=== PATIENT | male | born 1960 | race African-American/Black ===

== ENCOUNTER 2020-06-25 05:25 | Inpatient (IN) | payer MEDICARE, OTHER ==
[2020-06-25] VITALS (41 sets, daily range): BP systolic 83–183; BP diastolic 37–137
[~2020-06-25] VITALS: Ht 180.3 cm; Wt 179.3 kg
[2020-06-25] MEDS ORDERED: ONDANSETRON HCL 4MG/2ML INJ IV PRN (07:30)
[2020-06-25] MEDS ORDERED: HEPARIN 5000 UNITS/ML VIAL IV PRN (07:30)
[2020-06-25] MEDS: HEPARIN 25,000 UNITS PREMIX 250 ML IV PRN (08:36)
[2020-06-25] MEDS: NITROGLYCERIN 50MG PREMIX 250 ML IV PRN ×5 (08:42→23:09)
[2020-06-25] MEDS: HYDROMORPHONE HCL/PF 2MG/ML CPJ IV PRN ×5 (09:30→21:07)
[2020-06-25 09:38] LABS: BASOPHILS % 0.6 % (0.0-2.0); EOSINOPHILS % 0.5 % (0.0-5.0); HEMATOCRIT. 38.7 % (42.0-52.0); HEMOGLOBIN. 12.7 g/dL (14.0-18.0); LYMPHOCYTES % 15.1 % (20.0-50.0); MEAN CORPUSCULAR HEMOGLOBIN 28.8 pg (28.0-32.0); MEAN CORPUSCULAR VOLUME 87.4 fL (80.0-94.0); MONOCYTES % 12.5 % (2.0-8.0); NEUTROPHILS % 71.3 % (40.0-76.0); RED BLOOD CELL COUNT 4.43 mill/uL (4.7-6.1)
[2020-06-25 09:51] LABS: INR 1.1; PARTIAL THROMBOPLASTIN TIME 29.7 sec (23.4-31.0); PROTHROMBIN TIME 11.8 sec (9.6-11.0)
[2020-06-25 10:03] LABS: CHLORIDE 104 mEq/L (98-107)
[2020-06-25 11:03] LABS: PLATELET 201 x1000/uL (130-400)
[2020-06-25] MEDS ORDERED: AMIODARONE HCL 900 MG in DEXT 5% WATER 482 ML IV SCH (12:00)
[2020-06-25 13:05] LABS: CHLORIDE 103 mEq/L (98-107)
[2020-06-25] MEDS ORDERED: LIDOCAINE HCL 1% 20ML VIAL (Pyxis) INJ ONE ×2 (13:38→14:40)
[2020-06-25] MEDS ORDERED: HEPARIN 1,000 UNITS PREMIX 0 ML IV ONE (13:38)
[2020-06-25] MEDS ORDERED: IODIXANOL 320MG/ML 200ML BOTTLE ONE (13:39)
[2020-06-25] MEDS ORDERED: IOHEXOL-300 100 ML BOTTLE ONE (13:39)
[2020-06-25] MEDS ORDERED: ATROPINE SULFATE 0.1MG/ML 10ML DISP.SYRIN ONE (13:39)
[2020-06-25 13:53] LABS: BG BASE EXCESS 5.3 mmol/L (-2.0-2.0); BG CARBOXYHEMOGLOBIN 0.6 % (0.5-1.5); BG DEOXYHEMOGLOBIN 0.4 % (0.0-5.0); BG HCO3 ACT 34.1 mmol/L (22.0-26.0); BG METHEMOGLOBIN 0.3 % (0.0-1.5); BG OXYGEN SATURATION 99.6 % (92.0-98.5); BG OXYHEMOGLOBIN 98.7 % (94.0-97.0); BG PCO2 70.5 mmHg (35.0-45.0); BG PH 7.302 (7.350-7.450); BG PO2 264.8 mmHg (75.0-100.0); BG SAMPLE SITE RIGHT RADIAL; BG TOTAL HEMOGLOBIN 13.6 g/dL (12.0-18.0); BG VENT MODE MASK - BIPAP
[2020-06-25] MEDS ORDERED: DIPHENHYDRAMINE 50MG/ML VIAL ONE (13:57)
[2020-06-25] MEDS ORDERED: FAMOTIDINE 20MG/2ML VIAL IV ONE (13:58)
[2020-06-25] MEDS ORDERED: HYDROCORTISONE SOD SUCCINATE 250 MG/2 ML VIAL ONE (14:00)
[2020-06-25] MEDS ORDERED: FUROSEMIDE 40MG/4ML VIAL ONE (14:26)
[2020-06-25] MEDS: LEVETIRACETAM 500MG PREMIX 100 ML IV SCH ×2 (15:00→23:10)
[2020-06-25] MEDS ORDERED: MIDAZOLAM HCL 2 MG/2 ML VIAL ONE (15:07)
[2020-06-25] MEDS ORDERED: FENTANYL CITRATE/PF 50MCG/ML 2ML VIAL ONE (15:07)
[2020-06-25 16:21] LABS: BG BASE EXCESS 5.4 mmol/L (-2.0-2.0); BG CARBOXYHEMOGLOBIN 0.1 % (0.5-1.5); BG FRACTION INSPIRED OXYGEN 40; BG HCO3 ACT 32.7 mmol/L (22.0-26.0); BG METHEMOGLOBIN 0.5 % (0.0-1.5); BG OXYHEMOGLOBIN 95.4 % (94.0-97.0); BG PCO2 60.5 mmHg (35.0-45.0); BG PH 7.351 (7.350-7.450); BG PO2 81.8 mmHg (75.0-100.0); BG SAMPLE SITE RIGHT RADIAL; BG TOTAL HEMOGLOBIN 13.4 g/dL (12.0-18.0); BG TOTAL RESPIRATORY RATE 20 b/min; BG VENT MODE MASK - BIPAP
[2020-06-25] MEDS: HEPARIN 5000 UNITS/ML VIAL IV PRN (16:54)
[2020-06-25] MEDS: FUROSEMIDE 40MG/4ML VIAL IVP SCH (17:00)
[2020-06-26] VITALS (100 sets, daily range): BP systolic 84–172; BP diastolic 18–145
[2020-06-26 00:08] LABS: CHLORIDE 103 mEq/L (98-107)
[2020-06-26] MEDS: DIPHENHYDRAMINE 50MG/ML VIAL IV PRN ×3 (00:59→16:24)
[2020-06-26] MEDS: HYDROMORPHONE HCL/PF 2MG/ML CPJ IV PRN ×6 (03:18→21:08)
[2020-06-26] MEDS: NITROGLYCERIN 50MG PREMIX 250 ML IV PRN ×5 (05:18→23:23)
[2020-06-26] MEDS: HEPARIN 25,000 UNITS PREMIX 250 ML IV PRN (06:51)
[2020-06-26] MEDS ORDERED: NITROGLYCERIN 50MCG/ML 10ML VIAL (CATH LAB) IV ONE (08:00)
[2020-06-26] MEDS ORDERED: HEPARIN SODIUM 1,000 UNIT/1ML VIAL IV ONE (08:00)
[2020-06-26] MEDS ORDERED: NICARDIPINE 100MCG/ML 10ML VIAL (CATH LAB) IV ONE (08:00)
[2020-06-26] MEDS: HEPARIN 5000 UNITS/ML VIAL IV PRN ×3 (08:14→23:22)
[2020-06-26] MEDS: FUROSEMIDE 40MG/4ML VIAL IVP SCH ×3 (08:17→16:13)
[2020-06-26 09:22] LABS: CHLORIDE 102 mEq/L (98-107)
[2020-06-26] MEDS: LEVETIRACETAM 500MG PREMIX 100 ML IV SCH ×2 (09:39→23:22)
[2020-06-26] MEDS ORDERED: LIDOCAINE HCL 1% 20ML VIAL (Pyxis) INJ ONE (09:52)
[2020-06-26 12:23] LABS: CHLORIDE 100 mEq/L (98-107)
[2020-06-26 17:03] LABS: CHLORIDE 101 mEq/L (98-107)
[2020-06-26 22:43] LABS: CHLORIDE 103 mEq/L (98-107)
[2020-06-27] VITALS (53 sets, daily range): BP systolic 106–170; BP diastolic 43–97
[2020-06-27] MEDS: HEPARIN 25,000 UNITS PREMIX 250 ML IV PRN (00:03)
[2020-06-27] MEDS: DIPHENHYDRAMINE 50MG/ML VIAL IV PRN ×2 (01:00→14:51)
[2020-06-27] MEDS: NITROGLYCERIN 50MG PREMIX 250 ML IV PRN (03:30)
[2020-06-27] MEDS: HYDROMORPHONE HCL/PF 2MG/ML CPJ IV PRN ×3 (05:23→14:52)
[2020-06-27 05:59] LABS: BASOPHILS % 0.8 % (0.0-2.0); EOSINOPHILS % 0.8 % (0.0-5.0); HEMATOCRIT. 36.5 % (42.0-52.0); HEMOGLOBIN. 11.8 g/dL (14.0-18.0); LYMPHOCYTES % 14.9 % (20.0-50.0); MEAN CORPUSCULAR HEMOGLOBIN 28.1 pg (28.0-32.0); MEAN CORPUSCULAR VOLUME 87.3 fL (80.0-94.0); MEAN PLATELET VOLUME 8.3 fl (7.4-10.4); MONOCYTES % 12.9 % (2.0-8.0); NEUTROPHILS % 70.6 % (40.0-76.0); PHOSPHORUS 2.5 mg/dL (2.5-4.9); PLATELET 233 x1000/uL (130-400); RED BLOOD CELL COUNT 4.18 mill/uL (4.7-6.1); RED CELL DISTRIBUTION WIDTH 15.8 % (11.6-14.6)
[2020-06-27] MEDS ORDERED: LIDOCAINE HCL 1% 20ML VIAL (Pyxis) INJ ONE (07:42)
[2020-06-27] MEDS ORDERED: IODIXANOL 320MG/ML 200ML BOTTLE ONE ×2 (07:42→09:32)
[2020-06-27] MEDS ORDERED: IOHEXOL-300 100 ML BOTTLE ONE (07:43)
[2020-06-27] MEDS ORDERED: FENTANYL CITRATE/PF 50MCG/ML 5ML VIAL ONE (07:55)
[2020-06-27] MEDS ORDERED: MIDAZOLAM HCL 5 MG/5 ML VIAL ONE (07:55)
[2020-06-27] MEDS ORDERED: DIPHENHYDRAMINE 50MG/ML VIAL ONE (07:55)
[2020-06-27] MEDS ORDERED: FAMOTIDINE 20MG/2ML VIAL IV ONE (07:56)
[2020-06-27] MEDS ORDERED: HYDROCORTISONE SOD SUCCINATE 250 MG/2 ML VIAL ONE (07:58)
[2020-06-27] MEDS ORDERED: CLOPIDOGREL 75MG TABLET ONE (10:04)
[2020-06-27] MEDS ORDERED: ASPIRIN 325MG TABLET ONE (10:05)
[2020-06-27] MEDS: LEVETIRACETAM 500MG PREMIX 100 ML IV SCH (10:45)
[2020-06-27] MEDS: FUROSEMIDE 40MG/4ML VIAL IVP SCH ×3 (11:04→17:54)
[2020-06-27] MEDS: ASPIRIN 81MG TABLET PO SCH (11:38)
[2020-06-27] MEDS ORDERED: POTASSIUM CHLORIDE 20MEQ TABLET SR PO SCH (12:15)
[2020-06-27] MEDS: HYDROCODONE/ACETAMINOPHEN 10/325MG TABLET PO PRN (18:47)
[2020-06-27] MEDS: LEVETIRACETAM 500MG TABLET PO SCH (21:40)
[2020-06-27] MEDS: ATORVASTATIN CALCIUM 40MG TABLET PO SCH (21:40)
[2020-06-27] MEDS: GABAPENTIN 300MG CAPSULE PO SCH (22:38)
[2020-06-28] VITALS (49 sets, daily range): BP systolic 98–172; BP diastolic 37–102
[2020-06-28 05:46] LABS: BASOPHILS % 0.7 % (0.0-2.0); EOSINOPHILS % 0.8 % (0.0-5.0); HEMATOCRIT. 37.9 % (42.0-52.0); HEMOGLOBIN. 12.2 g/dL (14.0-18.0); LYMPHOCYTES % 19.5 % (20.0-50.0); MEAN CORPUSCULAR VOLUME 86.6 fL (80.0-94.0); MEAN PLATELET VOLUME 8.4 fl (7.4-10.4); MONOCYTES % 10.8 % (2.0-8.0); NEUTROPHILS % 68.2 % (40.0-76.0); PLATELET 222 x1000/uL (130-400); RED BLOOD CELL COUNT 4.37 mill/uL (4.7-6.1); RED CELL DISTRIBUTION WIDTH 15.9 % (11.6-14.6)
[2020-06-28 05:53] LABS: CHLORIDE 102 mEq/L (98-107)
[2020-06-28] MEDS: GABAPENTIN 300MG CAPSULE PO SCH ×3 (06:36→21:31)
[2020-06-28] MEDS: CLOPIDOGREL 75MG TABLET PO SCH (09:05)
[2020-06-28] MEDS: POTASSIUM CHLORIDE 20MEQ TABLET SR PO SCH (09:05)
[2020-06-28] MEDS: ASPIRIN 81MG TABLET PO SCH (09:05)
[2020-06-28] MEDS: LEVETIRACETAM 500MG TABLET PO SCH ×2 (09:05→21:31)
[2020-06-28] MEDS: FUROSEMIDE 40MG/4ML VIAL IVP SCH ×3 (09:05→17:19)
[2020-06-28] MEDS: HYDROCODONE/ACETAMINOPHEN 10/325MG TABLET PO PRN (17:41)
[2020-06-28] MEDS: ATORVASTATIN CALCIUM 40MG TABLET PO SCH (21:31)
[2020-06-29] VITALS (21 sets, daily range): BP systolic 100–164; BP diastolic 26–118
[2020-06-29] MEDS: GABAPENTIN 300MG CAPSULE PO SCH ×3 (06:00→22:03)
[2020-06-29] MEDS: POTASSIUM CHLORIDE 20MEQ TABLET SR PO SCH (08:09)
[2020-06-29] MEDS: ASPIRIN 81MG TABLET PO SCH (08:09)
[2020-06-29] MEDS: FUROSEMIDE 40MG/4ML VIAL IVP SCH (08:09)
[2020-06-29] MEDS: LEVETIRACETAM 500MG TABLET PO SCH ×2 (08:09→22:03)
[2020-06-29] MEDS: CLOPIDOGREL 75MG TABLET PO SCH (08:09)
[2020-06-29] MEDS: FUROSEMIDE 40MG TABLET PO SCH (17:14)
[2020-06-30] VITALS (12 sets, daily range): BP systolic 92–143; BP diastolic 16–84
[2020-06-30] MEDS: GABAPENTIN 300MG CAPSULE PO SCH ×3 (05:30→21:15)
[2020-06-30] MEDS: FUROSEMIDE 40MG TABLET PO SCH ×2 (05:30→18:11)
[2020-06-30] MEDS: LEVETIRACETAM 500MG TABLET PO SCH ×2 (08:18→21:15)
[2020-06-30] MEDS: CLOPIDOGREL 75MG TABLET PO SCH (08:19)
[2020-06-30] MEDS: ASPIRIN 81MG TABLET PO SCH (08:19)
[2020-06-30] MEDS: POTASSIUM CHLORIDE 20MEQ TABLET SR PO SCH (08:19)
[2020-07-01] VITALS (8 sets, daily range): BP systolic 109–154; BP diastolic 67–107
[2020-07-01] MEDS: GABAPENTIN 300MG CAPSULE PO SCH (06:11)
[2020-07-01] MEDS: FUROSEMIDE 40MG TABLET PO SCH (06:11)
[2020-07-01] MEDS: LEVETIRACETAM 500MG TABLET PO SCH (09:35)
[2020-07-01] MEDS: ASPIRIN 81MG TABLET PO SCH (09:35)
[2020-07-01] MEDS: CLOPIDOGREL 75MG TABLET PO SCH (09:35)
[2020-07-01] MEDS: POTASSIUM CHLORIDE 20MEQ TABLET SR PO SCH (09:36)
[2020-07-01] MEDS ORDERED: LORAZEPAM 2MG/ML CPJ IM ONE (13:45)
[2020-07-01] MEDS ORDERED: LEVETIRACETAM 1,000 MG in SODIUM CHLORIDE 0.9% 100 ML IV SCH (13:45)
[2020-07-01] MEDS ORDERED: LEVETIRACETAM 1000MG PREMIX 100 ML IV ONE (14:00)
[2020-07-01] MEDS ORDERED: LIDOCAINE HCL 1% 20ML VIAL (Pyxis) INJ ONE (14:08)
== END 2020-07-01 15:30 | disposition left against medical advice (07) | DRG 246 ==
LOC: 5EST 05:25 → CVICU 06-26 19:00 → 3WST 06-29 10:15
PROVIDERS: ADMIT Internal Medicine; ATTEND Internal Medicine
PROC: 027034Z Dilation of Coronary Artery, One Artery with Drug-eluting Intraluminal Device, Percutaneous Approach (ICD-10-PCS; principal; 2020-06-25)
PROC: 4A023N7 Measurement of Cardiac Sampling and Pressure, Left Heart, Percutaneous Approach (ICD-10-PCS; 2020-06-25)
PROC: B2111ZZ Fluoroscopy of Multiple Coronary Arteries using Low Osmolar Contrast (ICD-10-PCS; 2020-06-25)
PROC: B2151ZZ Fluoroscopy of Left Heart using Low Osmolar Contrast (ICD-10-PCS; 2020-06-25)
PROC: 5A09557 Assistance with Respiratory Ventilation, Greater than 96 Consecutive Hours, Continuous Positive Airway Pressure (ICD-10-PCS; 2020-06-25)
PROC: 05H333Z Insertion of Infusion Device into Right Innominate Vein, Percutaneous Approach (ICD-10-PCS; 2020-06-25)
PROC: B54MZZA Ultrasonography of Right Upper Extremity Veins, Guidance (ICD-10-PCS; 2020-06-25)
PROC: 02HV33Z Insertion of Infusion Device into Superior Vena Cava, Percutaneous Approach (ICD-10-PCS; 2020-07-01)
PROC: B548ZZA Ultrasonography of Superior Vena Cava, Guidance (ICD-10-PCS; 2020-07-01)
DX: T82.855A Stenosis of coronary artery stent, initial encounter (principal); I21.4 Non-ST elevation (NSTEMI) myocardial infarction; I50.43 Acute on chronic combined systolic (congestive) and diastolic (congestive) heart failure; J96.21 Acute and chronic respiratory failure with hypoxia; J96.22 Acute and chronic respiratory failure with hypercapnia; E44.1 Mild protein-calorie malnutrition; E87.2 Acidosis; I69.351 Hemiplegia and hemiparesis following cerebral infarction affecting right dominant side; Z68.43 Body mass index [BMI] 50.0-59.9, adult; E66.2 Morbid (severe) obesity with alveolar hypoventilation; I25.10 Atherosclerotic heart disease of native coronary artery without angina pectoris; I11.0 Hypertensive heart disease with heart failure; E78.5 Hyperlipidemia, unspecified; E11.9 Type 2 diabetes mellitus without complications; F17.210 Nicotine dependence, cigarettes, uncomplicated; G40.909 Epilepsy, unspecified, not intractable, without status epilepticus; J44.9 Chronic obstructive pulmonary disease, unspecified; E78.00 Pure hypercholesterolemia, unspecified; K21.9 Gastro-esophageal reflux disease without esophagitis; Z95.810 Presence of automatic (implantable) cardiac defibrillator; Z91.010 Allergy to peanuts; Z88.0 Allergy status to penicillin; Z88.8 Allergy status to other drugs, medicaments and biological substances; Z95.5 Presence of coronary angioplasty implant and graft; Z82.49 Family history of ischemic heart disease and other diseases of the circulatory system; Z83.3 Family history of diabetes mellitus; Z86.718 Personal history of other venous thrombosis and embolism; I25.2 Old myocardial infarction; Z53.29 Procedure and treatment not carried out because of patient's decision for other reasons; Z20.822 Contact with and (suspected) exposure to COVID-19; Y83.8 Other surgical procedures as the cause of abnormal reaction of the patient, or of later complication, without mention of misadventure at the time of the procedure; Y92.89 Other specified places as the place of occurrence of the external cause
CPT/HCPCS: 36415; 36573; 36600; 71045; 76937; 80048; 80053; 82375; 82805; 82962; 83735; 84100; 84484; 85025; 85347; 87426; 92928; 93005; 93458; 94660; 97162; C1725; C1769; C1874; C1887; J0282; J0461; J1170; J1200; J1644; J1720; J1940; J1953; J2250; J3010; J3490; J7060; Q9967